=== PATIENT | female | born 1990 | race Caucasian/White ===

== ENCOUNTER 2020-10-05 06:23 | Inpatient (IN) | payer OTHER ==
[~2020-10-05] VITALS: Ht 157.5 cm; Wt 81.6 kg
[2020-10-05 06:30] VITALS: Ht 157.5 cm; Wt 81.6 kg
[2020-10-05 07:49] LABS: microscopic required? NO
[2020-10-05 08:06] LABS: BASOPHIL % 0.4 % (0.2-1.3); PLATELET COUNT 274 x10^3mcL (179-408); RED CELL DISTRIBUTION WIDTH 12.9 % (12.3-17.7)
[2020-10-05 08:15] LABS: CARBON DIOXIDE 26.6 mmol/L (21-32); CHLORIDE SERUM 100 mmol/L (98-107); CREATININE SERUM 0.7 mg/dL (0.6-1.0); GFR1 > 60 mL/min; GLUCOSE SERUM 129 mg/dL (74-106); POTASSIUM SERUM 4.2 mmol/L (3.5-5.1); SODIUM SERUM 138 mmol/L (136-145)
[2020-10-05 08:27] LABS: ALBUMIN 4.1 g/dL (3.4-5.0); ALKALINE PHOSPHATASE 110 U/L (46-116); ALT/SGPT 34 U/L (14-59); AST/SGOT 20 U/L (15-37); BILIRUBIN TOTAL 0.4 mg/dL (0.20-1.00); LIPASE 85 IU/L (73-393); TOTAL PROTEIN, SERUM 8.1 g/dL (6.4-8.2)
[2020-10-05 08:29] LABS: CHOLESTEROL 221 mg/dL (<200)
[2020-10-05 08:31] LABS: urine erythrocyte NEGATIVE (NEGATIVE)
[2020-10-05] MEDS ORDERED: ADVAIR HFA 115/1 AER IH (12:03)
[2020-10-05 16:05] VITALS: BP 131/89
[2020-10-05 20:42] VITALS: BP 115/69
[2020-10-06 05:10] VITALS: BP 98/63
[2020-10-06 08:13] VITALS: BP 112/65
[2020-10-06 09:01] LABS: BASOPHIL % 0.5 % (0.2-1.3); PLATELET COUNT 246 x10^3mcL (179-408); RED CELL DISTRIBUTION WIDTH 13.4 % (12.3-17.7)
[2020-10-06 09:25] LABS: CALCIUM 8.9 mg/dL (8.5-10.1); CARBON DIOXIDE 28.6 mmol/L (21-32); CHLORIDE SERUM 105 mmol/L (98-107); CREATININE SERUM 0.8 mg/dL (0.6-1.0); GFR1 > 60 mL/min; GLUCOSE SERUM 115 mg/dL (74-106); MAGNESIUM 2.4 mg/dL (1.8-2.4); PHOSPHOROUS 3.3 mg/dL (2.5-4.9); POTASSIUM SERUM 3.7 mmol/L (3.5-5.1); SODIUM SERUM 143 mmol/L (136-145)
[2020-10-06 13:07] VITALS: BP 113/67
[2020-10-06 17:04] VITALS: BP 106/62
[2020-10-06 21:43] VITALS: BP 110/65
[2020-10-07 06:17] VITALS: BP 100/64
[2020-10-07 06:17] LABS: BASOPHIL % 0.2 % (0.2-1.3); PLATELET COUNT 249 x10^3mcL (179-408); RED CELL DISTRIBUTION WIDTH 13.1 % (12.3-17.7)
[2020-10-07 07:27] LABS: CALCIUM 8.5 mg/dL (8.5-10.1); CARBON DIOXIDE 27.2 mmol/L (21-32); CHLORIDE SERUM 102 mmol/L (98-107); CREATININE SERUM 0.7 mg/dL (0.6-1.0); GFR1 > 60 mL/min; GLUCOSE SERUM 118 mg/dL (74-106); PHOSPHOROUS 3.4 mg/dL (2.5-4.9); POTASSIUM SERUM 3.8 mmol/L (3.5-5.1); SODIUM SERUM 137 mmol/L (136-145)
[2020-10-07 08:37] VITALS: BP 103/65
[2020-10-07 11:26] VITALS: BP 115/74
[2020-10-07 12:08] VITALS: BP 115/74
[2020-10-07] MEDS ORDERED: ADVAIR HFA 115/1 AER IH (12:57)
== END 2020-10-07 14:36 | disposition home or self-care (01) | DRG 419 ==
LOC: ED 06:23 → MU 10:49
PROVIDERS: Emergency Medicine; Surgery; ADMIT Family Medicine; ATTEND Family Medicine
PROC: 0FT44ZZ Resection of Gallbladder, Percutaneous Endoscopic Approach (ICD-10-PCS; principal; 2020-10-06 10:30)
DX: K81.0 Acute cholecystitis (principal); E66.9 Obesity, unspecified; Z20.828 Contact with and (suspected) exposure to other viral communicable diseases; J45.909 Unspecified asthma, uncomplicated; D72.829 Elevated white blood cell count, unspecified; E78.5 Hyperlipidemia, unspecified; Z68.34 Body mass index [BMI] 34.0-34.9, adult; Z88.2 Allergy status to sulfonamides; Z79.899 Other long term (current) drug therapy
CPT/HCPCS: 78226; A9537; G0378; J1170; J1885; J2250; J2543; J3010; J3490; J7030; J7042